=== PATIENT | female | born 1980 | race Caucasian/White ===

== ENCOUNTER 2018-01-19 03:55 | Inpatient (IN) | payer OTHER ==
[~2018-01-19] VITALS: Ht 157.5 cm; Wt 94.3 kg
[~2018-01-19 03:55] MED LIST: ACET-787 PO
[2018-01-19 03:58] VITALS: BP 134/72
--- NOTE | 2018-01-19 04:50 | NUR ---
TO ER BED 3
--- NOTE | 2018-01-19 04:50 | NUR ---
PT PRESENTS TO ED WITH ABD PAIN THROUGHOUT WITH BOWEL SOUNDS ACTIVE X4 QUADRANTS. PT STATES NAUSEA WITHOUT VOMITING. INCREASED DIARRHEA X 6 HRS. VSS. POSITIONED IN BED FOR COMFORT. ER MD AWARE. CONTINUE TO MONITOR.
--- NOTE | 2018-01-19 04:55 | NUR ---
DR PAULINO AT BEDSIDE FOR EVALUATION.
[2018-01-19] MEDS ORDERED: LEVOFLOXACIN 500 MG/D5W PREMIX 100 ML IV ONE (05:05)
[2018-01-19] MEDS ORDERED: NACL 0.9% 1,000 ML IV ONE (05:05)
[2018-01-19] MEDS ORDERED: KETOROLAC 30 MG/ML VIAL IVP ONE (05:05)
[2018-01-19 06:04] LABS: BASOPHILS % (AUTO) 0.2 % (0.0-2.0); EOSINOPHILS # (AUTO) 0.1 K/uL (0-0.4); HEMATOCRIT 40.4 % (36-48); HEMOGLOBIN 13.3 g/dL (12.0-16.0); LYMPHOCYTES # (AUTO) 1.5 K/uL (2.5-16.5); LYMPHOCYTES % (AUTO) 18.1 % (20.5-51.1); MEAN CORPUSCULAR HEMOGLOBIN 27 pg (27-31); MEAN CORPUSCULAR HGB CONC 33 g/dL (33-37); MEAN CORPUSCULAR VOLUME 81.1 fL (80-94); MONOCYTES # (AUTO) 0.5 K/uL (0.8-1.0); MONOCYTES % (AUTO) 5.9 % (1.7-9.3); NEUTROPHILS # (AUTO) 6.1 K/uL (1.8-7.7); NEUTROPHILS % (AUTO) 74.8 % (42.2-75.2); PLATELET COUNT (AUTO) 258 K/uL (140-450); RED BLOOD CELL COUNT(AUTO) 4.97 MIL/uL (4.20-5.40); RED CELL DISTRIBUTION WIDTH 12.6 % (11.6-13.7); WHITE BLOOD COUNT (AUTO) 8.1 K/uL (4.8-10.8)
[2018-01-19 06:13] LABS: APPEARANCE,URINE CLEAR (CLEAR); BILIRUBIN,URINE NEGATIVE (NEGATIVE); BLOOD, URINE NEGATIVE (NEGATIVE); COLOR,URINE YELLOW (YELLOW); LEUKOCYTE ESTERASE ,URINE NEGATIVE (NEGATIVE); NITRITE, URINE POSITIVE (NEGATIVE); UGLUCOSE NEGATIVE (NEGATIVE)
[2018-01-19 06:46] LABS: ANION GAP 10.8 (8-16); CARBON DIOXIDE 27.8 mmol/L (21-32); POTASSIUM 3.6 mmol/L (3.5-5.1)
[2018-01-19 06:47] LABS: CREATININE 0.7 mg/dL (0.6-1.3); TOTAL BILIRUBIN 0.4 mg/dL (0.0-1.0)
[2018-01-19 06:48] LABS: ALBUMIN 3.8 g/dL (3.4-5.0)
--- NOTE | 2018-01-19 07:05 | NUR ---
RECEIVED REPORT FROM RUSTY LOPEZ.
[2018-01-19 07:09] LABS: RBC,URINE 0-5 (RARE) /HPF (0-5)
[2018-01-19 07:10] LABS: WBC,URINE 0-5 (RARE) /HPF (0-5)
[2018-01-19 07:11] LABS: CALCIUM OXALATE CRYSTALS,UR 0-10 /HPF (None Seen)
[2018-01-19] MEDS ORDERED: MORPHINE SULFATE 4 MG/ML SYR IVP PRN (08:20)
[2018-01-19] MEDS ORDERED: ONDANSETRON 4 MG/2 ML VIAL IVP PRN (08:20)
[2018-01-19 08:45] VITALS: BP 119/87
--- NOTE | 2018-01-19 08:45 | NUR ---
Patient will be admitted to care of DR WALTON . Admited to Med/Surg. Will go to room 124B. Belongings list completed. Report to JIE LOPEZ .
--- NOTE | 2018-01-19 08:46 | NUR ---
PT ARRIVED ON UNIT BY KYA BROUGHT BY ED NURSE BILLY. PT TRANSFERRED SELF FROM [facility] TO BED WITH NO ASSISTANCE. PT A0X4, SKIN IS INTACT.NO FLUIDS RUNNING AT THIS TIME BUT PT CONNECTED TO NS AT THIS TIME IV SITE IS 20 G ON R F/A. PT STATES PAIN IN ABD IS 7/10. WILL MEDICATE WITH ORDERED PAIN MEDICATION. V/S FOLLOWS T97.7 P98 R18 [id number]/[id number]/87 02 [id number] ON R/A.
--- NOTE | 2018-01-19 09:46 | NUR ---
PT IN STABLE CONDITION. STATED THAT PAIN WAS TOLERABLE AT THIS TIME. WILL MEDICATE IF PAIN RETURNS. ALL NEEDS MET AT THIS TIME. BED IN LOW POSITION, CALL LIGHT WITHIN REACH.
[2018-01-19] MEDS ORDERED: LOPERAMIDE 2 MG CAP PO PRN (11:05)
[2018-01-19] MEDS: NACL 0.9% 1,000 ML IV SCH ×2 (11:06→18:17)
--- NOTE | 2018-01-19 11:07 | NUR ---
ADMINISTERED MORPHINE TO PT FOR 7/10 SEVERE PAIN. PT STATES PAIN IS IN THE ABD RADIATING TO BOTH SIDES. WILL REASSESS FOR MED EFFECTIVENESS. ALL OTHER NEEDS MET AT THIS TIME.
--- NOTE | 2018-01-19 11:30 | NUR ---
PT EDUCATED ON THE NEED FOR STOOL COLLECTION. HAT PLACED IN TOILET AN TOLD PT TO CALL WHEN SHE HAS BOWEL MOVEMENT. PT IN STABLE CONDITION. ALL NEEDS MET AT THIS TIME.
[2018-01-19 12:00] VITALS: BP 116/76
--- NOTE | 2018-01-19 12:47 | NUR ---
PT STATES PAIN IS 0/10 AT THIS TIME. SHE ATE A JELLO AND SWITCHED POSITIONS WHICH SHE STATES HELPS HER PAIN. PT IN STABLE POSITION AT THIS TIME. ALL NEEDS MET. PT BED IN LOW POSITION, CALL LIGHT WITHIN REACH.
--- NOTE | 2018-01-19 14:07 | NUR ---
PT SLEEPING AT THIS TIME. NO SIGNS OF PAIN NOTED. PT IN STABLE CONDITION. ALL NEEDS MET AT THIS TIME. WILL ROUND FREQUENTLY. BED IN LOW POSITION, CALL LIGHT WITHIN REACH.
--- NOTE | 2018-01-19 15:19 | NUR ---
PATIENT HAS BEEN SCREENED AND CATEGORIZED HIGH NUTRITION RISK. PATIENT WILL BE SEEN WITHIN 1-2 DAYS OF ADMISSION. 01/18/18-01/20/[address]
[2018-01-19 16:00] VITALS: BP 117/82
--- NOTE | 2018-01-19 16:57 | NUR ---
PT SLEEPING IN BED. NO SIGNS OF PAIN. ALL NEEDS MET AT THIS TIME. BED IN LOW POSITION, CALL LIGHT WITHIN REACH.
--- NOTE | 2018-01-19 19:35 | NUR ---
ENDORSED PT TO LAUNDROMAT WORKER NURSE FOR CONTINUITY OF CARE. PT IN STABLE CONDITION.
--- NOTE | 2018-01-19 19:36 | NUR ---
RECEIVED REPORT FROM DAY SHIFT NURSE. AAOX4. NO C/O PAIN OR SOB. NO C/O OF NAUSEA/VOMITING OR DIARRHEA. SKIN INTACT. IV TO RIGHT AC #20G, NS AT 100 ML/HR INFUSING WELL. DISCUSSED PLAN OF CARE, PT VERBALIZED UNDERSTANDING. CALL LIGHT WITHIN REACH.
--- NOTE | 2018-01-19 21:50 | NUR ---
PT LYING IN BED, WATCHING TV. NO C/O PAIN. ALL NEEDS MET AT THIS TIME. CALL LIGHT WITHIN REACH.
[2018-01-20] VITALS: BP 107/66
--- NOTE | 2018-01-20 00:30 | NUR ---
PT SLEEPING. RESP EVEN AND UNLABORED. NO S/S OF PAIN OR DISCOMFORT.
--- NOTE | 2018-01-20 03:00 | NUR ---
PT SLEEPING BUT EASILY AROUSABLE. NO S/S OF PAIN OR SOB. CALL LIGHT WITHIN REACH.
[2018-01-20] MEDS: NACL 0.9% 1,000 ML IV SCH ×2 (05:16→17:10)
--- NOTE | 2018-01-20 05:35 | NUR ---
PT IN BED, AWAKE. PT HAD NO BM. NO C/O PAIN OR SOB.
[2018-01-20 07:20] LABS: BASOPHILS % (AUTO) 0.2 % (0.0-2.0); EOSINOPHILS # (AUTO) 0.2 K/uL (0-0.4); EOSINOPHILS % (AUTO) 4.5 % (0.0-4.0); HEMATOCRIT 37.8 % (36-48); HEMOGLOBIN 12.3 g/dL (12.0-16.0); LYMPHOCYTES # (AUTO) 1.5 K/uL (2.5-16.5); MEAN CORPUSCULAR HEMOGLOBIN 26 pg (27-31); MEAN CORPUSCULAR HGB CONC 33 g/dL (33-37); MEAN CORPUSCULAR VOLUME 81.3 fL (80-94); MONOCYTES # (AUTO) 0.2 K/uL (0.8-1.0); MONOCYTES % (AUTO) 5.1 % (1.7-9.3); NEUTROPHILS # (AUTO) 2.7 K/uL (1.8-7.7); NEUTROPHILS % (AUTO) 58.2 % (42.2-75.2); PLATELET COUNT (AUTO) 226 K/uL (140-450); RED BLOOD CELL COUNT(AUTO) 4.65 MIL/uL (4.20-5.40); RED CELL DISTRIBUTION WIDTH 12.9 % (11.6-13.7); WHITE BLOOD COUNT (AUTO) 4.6 K/uL (4.8-10.8)
--- NOTE | 2018-01-20 07:20 | NUR ---
ENDORSED PT TO DAY SHIFT NURSE. PT IN STABLE CONDITION.
--- NOTE | 2018-01-20 07:21 | NUR ---
RECEIVED REPORT FROM PM NURSE AT BEDSIDE.PT LYING ON HER BED. DENIES ANY PAIN. UPDATED BOARD AND INTRODUCED SELF . CALL LIGHT WITHIN PT REACH. HAS IV ACCESS ON RT AC 20 G, IVF NS INFUSING AT 100 ML/HR. NO SIGN OF DISTRESS NOTED. PT AMBULATORY.INFORMED PT TO USE CALL LIGHT FOR ANY HELP. WILL CONTINUE TO MONITOR PT.
[2018-01-20 08:10] VITALS: BP 115/69
[2018-01-20 08:36] LABS: ALBUMIN 2.9 g/dL (3.4-5.0); ANION GAP 11.1 (8-16); CARBON DIOXIDE 25.8 mmol/L (21-32); CREATININE 0.7 mg/dL (0.6-1.3); POTASSIUM 3.9 mmol/L (3.5-5.1); TOTAL BILIRUBIN 0.3 mg/dL (0.0-1.0)
[2018-01-20] MEDS: FAMOTIDINE 20 MG TAB PO SCH (09:35)
[2018-01-20] MEDS: LEVOFLOXACIN 500 MG/D5W PREMIX 100 ML IV SCH (09:36)
--- NOTE | 2018-01-20 09:45 | NUR ---
ADMINISTERED MEDS TO PT ORDERED. TOLERATED WELL. COLLECTED STOOL SAMPLE FOR LAB AND SENT. NO SIGN OF DISTRESS NOTED. PT ASKING FOR . INFORMED THAT DR WALTON IS ON FLOOR ,WILL SEE HER. VERBALIZED UNDERSTANDING. WILL CONTINUE TO MONITOR PT.
--- NOTE | 2018-01-20 11:41 | NUR ---
CM NOTE PER JOYCE OF [facility] (PCP) PH# [phone], PATIENT IS SCHEDULED FOR OUTPATIENT FOLLOW UP ON JANUARY 26, 2018 AT 2:20 PM AT THE CLINIC IN [address] [place] [address] CHARGE NURSE PHIL LOPEZ AWARE
--- NOTE | 2018-01-20 12:00 | NUR ---
CHECKED ON PT. LYING ON HER BED. DENIES ANY ABDOMINAL PAIN. NO SIGN OF DISTRESS NOTED AT THIS TIME. WILL CONTINUE TO MONITOR PT.
[2018-01-20] MEDS: metroNIDAZOLE 500 MG/NS PREMIX 100 ML IV SCH ×2 (13:08→20:19)
--- NOTE | 2018-01-20 14:32 | NUR ---
01/20/18 RD INITIAL ASSESSMENT COMPLETED PLEASE REFER TO NUTRITION ASSESSMENT UNDER CARE ACTIVITY FOR ESTIMATED NUTRITIONAL NEEDS. 1. WHEN/IF PT MEDICALLY STABLE TO BEGIN NUTRITION. CONSIDER ADVANCE DIET TOLERATED TO REGULAR DIET 2. DIETITIAN RECOMMENDS ENSURE MAX 3X/DAY 3. RD TO FOLLOW-UP 3-5 DAYS, MODERATE RISK PEPITO [address]
[2018-01-20 16:00] VITALS: BP 126/82
--- NOTE | 2018-01-20 17:09 | NUR ---
CHECKED ON PT. SLEEPING ON HER BED. ASKING IF SHE CAN BE DISCHARGED TODAY. INFORMED HER THAT THERE IS NO ORDER FOR DISCHARGE. WILL LET HER KNOW ONCE THE DC ORDER IS IN PLACE. VERBALIZED UNDERSTANDING. WILL CONTINUE TO MONITOR PT.
--- NOTE | 2018-01-20 19:00 | NUR ---
GAVE OUTPATIENT INFORMATION TO BE FOLLOWED BY PATIENT AFTER DISCHARGE. PT TO FOLLOW UP WITH DR. [facility].
--- NOTE | 2018-01-20 19:35 | NUR ---
ENDORSED PT TO PM NURSE AT BEDSIDE. PT STABLE.
--- NOTE | 2018-01-20 19:40 | NUR ---
RECEIVED FROM AM RN IN BED AWAKE AND ALERT. ABLE TO VERBALIZE NEEDS WELL. NO SOB. CALL LIGHT WITH IN REACH. CARE PLANS FOR THE NIGHT DISCUSSED WITH HER. DX. ABDOMINAL PAIN. NO PAIN COMPLAINTS AT THIS TIME. AC IVF SITE TO RAC #20 INTACT AND NOT INFILTRATED. WITH GOOD BLOOD RETURN.
[2018-01-20] MEDS: ACETAMINOPHEN 325 MG TAB PO PRN (21:13)
--- NOTE | 2018-01-21 | NUR ---
PT. STILL AWAKE AND WATCHING SOMETHING IN HER CELL PHONE. VERBALIZES WELL.
[2018-01-21] MEDS: NACL 0.9% 1,000 ML IV SCH ×2 (00:17→10:31)
[2018-01-21 01:33] VITALS: BP 110/68
--- NOTE | 2018-01-21 01:35 | NUR ---
PT. SLEEPING AT THIS TIME.
[2018-01-21] MEDS: metroNIDAZOLE 500 MG/NS PREMIX 100 ML IV SCH ×2 (04:36→13:22)
--- NOTE | 2018-01-21 04:42 | NUR ---
SLEEPING WELL THIS SHIFT. NO COMPLAINTS DONE.
[2018-01-21 06:58] LABS: BASOPHILS % (AUTO) 0.4 % (0.0-2.0); EOSINOPHILS # (AUTO) 0.3 K/uL (0-0.4); HEMATOCRIT 37.3 % (36-48); LYMPHOCYTES # (AUTO) 1.9 K/uL (2.5-16.5); LYMPHOCYTES % (AUTO) 38.7 % (20.5-51.1); MEAN CORPUSCULAR HEMOGLOBIN 26 pg (27-31); MEAN CORPUSCULAR HGB CONC 32 g/dL (33-37); MEAN CORPUSCULAR VOLUME 81.1 fL (80-94); MONOCYTES # (AUTO) 0.3 K/uL (0.8-1.0); MONOCYTES % (AUTO) 5.6 % (1.7-9.3); NEUTROPHILS # (AUTO) 2.4 K/uL (1.8-7.7); NEUTROPHILS % (AUTO) 48.3 % (42.2-75.2); PLATELET COUNT (AUTO) 217 K/uL (140-450); RED CELL DISTRIBUTION WIDTH 12.7 % (11.6-13.7); WHITE BLOOD COUNT (AUTO) 4.9 K/uL (4.8-10.8)
--- NOTE | 2018-01-21 07:24 | NUR ---
ENDORSED TO THE NEXT RN FOR CONTINUITY OF CARE. A/O X 4. ROM X 4. INDEPENDENT.
--- NOTE | 2018-01-21 07:54 | NUR ---
PATIENT WAS AWAKE, ALERT. RESPIRATION EVEN, UNLABOR ON ROOM AIR. SKIN DRY AND WARM. IV PATENT AND INTACT. DENIED PAIN, N/V AT THIS TIME. PLAN OF CARE WAS DISCUSSED WITH PATIENT. BED AT LOW POSITION, SIDE RAILS UP. CALL LIGHT WITHIN REACH.
[2018-01-21 08:00] VITALS: BP 111/68
[2018-01-21 08:15] LABS: ANION GAP 10.9 (8-16); CARBON DIOXIDE 27.8 mmol/L (21-32); CREATININE 0.7 mg/dL (0.6-1.3); POTASSIUM 3.7 mmol/L (3.5-5.1)
[2018-01-21 08:16] LABS: ALBUMIN 2.9 g/dL (3.4-5.0); TOTAL BILIRUBIN 0.4 mg/dL (0.0-1.0)
[2018-01-21] MEDS ORDERED: IMO2 PO (08:33)
[2018-01-21] MEDS: FAMOTIDINE 20 MG TAB PO SCH (09:16)
[2018-01-21] MEDS: LEVOFLOXACIN 500 MG/D5W PREMIX 100 ML IV SCH (09:17)
[2018-01-21] MEDS: ACETAMINOPHEN 325 MG TAB PO PRN (10:39)
--- NOTE | 2018-01-21 10:42 | NUR ---
PATIENT COMPLAINED OF HEADACHE, 3/, MED WAS GIVEN PER ORDER
--- NOTE | 2018-01-21 10:55 | NUR ---
[employer] Note: I called and spoke with Shell from [facility] , I made an appt for patient on January 22, 2018 at 2pm, [address] [facility] [address] [place] [address]. I faxed patient's HNP, list of medications, face sheet, and MD's follow up appointment order to [facility], fax . Shell faxed our department appointment information, JESSICA Farley will meet with patient and provide her with printed appointment information.
--- NOTE | 2018-01-21 11:51 | NUR ---
PATIENT WAS SLEEPING COMFORTABLY. RESPIRATION EVEN, UNLABOR ON ROOM AIR. NO DISTRESS NOTED AT THIS TIME
--- NOTE | 2018-01-21 13:17 | NUR ---
LATE ENTRY FOR 10 AM FAXED ORDER FOR HIGH RISK FF UP TO [facility], RENETTA CRESPO
--- NOTE | 2018-01-21 14:30 | NUR ---
DISCHARGE INSTRUCTION AND PRESCRIPTION WERE GIVEN TO THE PATIENT. PATIENT VERBALIZED UNDERSTANDING. IV WAS REMOVED, CATHETER INTACT, NO ACTIVE BLEEDING SEEN. FLU VAC IS UP TO DATE
--- NOTE | 2018-01-21 15:06 | NUR ---
PATIENT WAS ESCORTED OUT BY STAFF, AMBULATORY WITH STEADY GAIT. ALL BELONGINGS WERE TAKEN WITH THE PATIENT. ID BAND WAS REMOVED. PATIENT IS STABLE AT THIS TIME.
== END 2018-01-21 15:08 | disposition home or self-care (01) | DRG 249 ==
LOC: MED 03:55 → MTU 08:28
PROVIDERS: ADMIT Internal Medicine; ATTEND Internal Medicine
DX: K52.9 Noninfective gastroenteritis and colitis, unspecified (principal); E27.9 Disorder of adrenal gland, unspecified; E66.9 Obesity, unspecified; Z68.38 Body mass index [BMI] 38.0-38.9, adult; Z85.43 Personal history of malignant neoplasm of ovary; Z90.710 Acquired absence of both cervix and uterus; Z90.722 Acquired absence of ovaries, bilateral; Z88.0 Allergy status to penicillin
CPT/HCPCS: 36415; 80053; 81001; 82150; 83690; 85025; 87045; 87081; 89055; 99285; J1885; J1956; J2270; J3490; J7030

== ENCOUNTER 2023-04-13 01:21 | Emergency (ER) | payer OTHER ==
[~2023-04-13] VITALS: Ht 157.5 cm; Wt 90.3 kg
[~2023-04-13 01:21] MED LIST changes: -ACET-787 PO; +HYDR-5191 PO; +IMO2 PO
[2023-04-13 01:25] VITALS: BP 138/92; PULSE 83; RESP 16; TEMP 96.9; O2SAT 99
[2023-04-13 02:05] VITALS: O2SAT 98
[2023-04-13] MEDS ORDERED: LIDOCAINE MPF 1% 5 ML ONE (03:54)
[2023-04-13 05:05] VITALS: BP 125/74; PULSE 76; RESP 18; TEMP 97.7; O2SAT 99
== END 2023-04-13 05:05 | disposition home or self-care (01) ==
LOC: MED 01:21
DX: S51.812A Laceration without foreign body of left forearm, initial encounter (principal); Z88.1 Allergy status to other antibiotic agents; Z79.899 Other long term (current) drug therapy; W26.0XXA Contact with knife, initial encounter; Y93.89 Activity, other specified; Y92.89 Other specified places as the place of occurrence of the external cause; Y99.8 Other external cause status
CPT/HCPCS: 12002; 99282; J2001